=== PATIENT | female | born 1965 | race African-American/Black ===

== ENCOUNTER 2017-10-25 08:29 | Day surgery (SDC) | payer SELFPAY ==
[~2017-10-25] VITALS: Ht 152.4 cm; Wt 69.6 kg
[2017-10-25 08:26] VITALS: BP 126/97; PULSE 85; TEMP 98.2
[2017-10-25] MEDS ORDERED: PREDNISONE 5MG5 MG PO (08:32)
[2017-10-25] MEDS ORDERED: PRIL40 PO (09:43)
[2017-10-25 10:15] VITALS: BP 140/92; PULSE 91; TEMP 98.4
[2017-10-25 10:25] VITALS: BP 136/93; PULSE 85
[2017-10-25 10:38] VITALS: BP 131/89; PULSE 84
[2017-10-25 14:18] VITALS: BP 140/92; PULSE 91
== END 2017-10-25 10:50 | disposition home or self-care (01) ==
LOC: SDCO 08:29
DX: K21.9 Gastro-esophageal reflux disease without esophagitis (principal); K44.9 Diaphragmatic hernia without obstruction or gangrene; K59.00 Constipation, unspecified; R19.7 Diarrhea, unspecified
CPT/HCPCS: OP; J2250; J2405; J3010; J7030